=== PATIENT | female | born 1980 | race Caucasian/White ===

== ENCOUNTER 2024-07-06 08:29 | Outpatient (CLI) | payer OTHER | END 2024-07-06 09:21 | disposition home or self-care (01) | LOC: NST 08:29 | PROVIDERS: ATTEND Obstetrics & Gynecology Maternal & Fetal Medicine | DX: Z34.83 Encounter for supervision of other normal pregnancy, third trimester (principal) ==

== ENCOUNTER 2024-07-10 07:45 | Inpatient (IN) | payer OTHER ==
[~2024-07-10] VITALS: Ht 157.5 cm; Wt 2.7 kg
[2024-07-10] MEDS ORDERED: PRENA1 CHEW TA1.4 MG PO (09:48)
[2024-07-10] MEDS ORDERED: MAGNESIUM CITR100 MG PO (09:49)
[2024-07-10] MEDS ORDERED: PROBIOTIC1 EACH PO (09:49)
[2024-07-10] MEDS ORDERED: ACETAMINOPHEN500 M1 PO (09:50)
[2024-07-10] MEDS ORDERED: PEPCID AC20 MG PO (09:50)
[2024-07-10 09:54] LABS: MEAN CELL VOLUME 91.4 fL (80.00-100.00); MEAN CORPUSCULAR HEMOGLOBIN 30.5 pg (27.00-32.0); MEAN CORPUSCULAR HGB CONC 33.4 g/dl (32.0-36.0); PLATELET COUNT 207 K/uL (150-450); RED BLOOD COUNT 3.94 M/uL (4.00-6.00); RED CELL DISTRIBUTION WIDTH 13.4 % (11.5-14.5)
[2024-07-10 10:16] LABS: INR < 0.93; PARTIAL THROMBOPLASTIN TIME 25.1 SECONDS (22.0-34.0); PROTHROMBIN TIME 9.9 SECONDS (9.0-11.5)
[2024-07-10 10:37] LABS: ALBUMIN 2.5 gm/dL (3.4-5.0); BILIRUBIN TOTAL 0.18 mg/dL (0.3-1.2); CALCIUM 8.8 mg/dL (8.5-10.1); CREATININE SERUM 0.61 mg/dL (0.55-1.02); GFR 108.09; GLOBULINA 3.4 G/DL (2.4-3.5); POTASSIUM 4.06 mEq/L (3.5-5.1); TOTAL PROTEIN 5.9 gm/dL (6.4-8.2)
[2024-07-18 07:00] VITALS: BP 110/73
[2024-07-18] MEDS ORDERED: CITRIC ACID/SODIUM CITRATE 30 ML BLIST.PACK PO ONE (10:45)
[2024-07-18] MEDS ORDERED: CLINDAMYCIN PHOSPHATE 150 MG/ML (900mg) IV ONE (10:45)
[2024-07-18] MEDS ORDERED: OXYTOCIN 10 UNITS/ML VIAL IV ONE (10:45)
[2024-07-18] MEDS ORDERED: ERYTHROMYCIN BASE OPHT 1GM EACH TUBE OP ONE (10:45)
[2024-07-18] MEDS ORDERED: OXYTOCIN 1,000 ML IV ONE (11:45)
[2024-07-18] MEDS ORDERED: PROMETHAZINE HCL 25 MG/ML AMPUL IV PRN (11:45)
[2024-07-18] MEDS ORDERED: RINGERS SOLUTION,LACTATED 1,000 ML IV SCH (11:45)
[2024-07-18] MEDS ORDERED: MEPERIDINE HCL 25 MG/ML AMPUL IV PRN (11:45)
[2024-07-18] MEDS ORDERED: ACETAMINOPHEN 500 MG GEL..CAP PO SCH (12:00)
[2024-07-18] MEDS ORDERED: MORPHINE SULFATE 4 MG/ML VIAL IV ONE ×2 (12:40→14:10)
[2024-07-18 16:28] VITALS: BP 135/82
[2024-07-18] MEDS ORDERED: GABAPENTIN 300 MG CAPSULE PO SCH (17:00)
[2024-07-18] MEDS ORDERED: SIMETHICONE 125 MG CAPSULE PO SCH (17:00)
[2024-07-18 20:31] VITALS: BP 143/80
[2024-07-18] MEDS ORDERED: MEPERIDINE HCL/PF 25 MG/ML VIAL IV SCH (23:17)
[2024-07-19] VITALS: BP 131/77
[2024-07-19 06:22] LABS: HEMATOCRIT 31.9 % (36.0-45.00); HEMOGLOBIN 11.2 g/dL (12.0-15.00); MEAN CELL VOLUME 89.8 fL (80.00-100.00); MEAN CORPUSCULAR HEMOGLOBIN 31.5 pg (27.00-32.0); MEAN CORPUSCULAR HGB CONC 35.1 g/dl (32.0-36.0); PLATELET COUNT 200 K/uL (150-450); RED BLOOD COUNT 3.55 M/uL (4.00-6.00); RED CELL DISTRIBUTION WIDTH 14.1 % (11.5-14.5)
[2024-07-19] MEDS ORDERED: OxyCODONE HCL 5 MG TABLET (ROXICODONE) PO PRN (08:00)
[2024-07-19 08:33] VITALS: BP 138/69
[2024-07-19] MEDS ORDERED: DOCUSATE SODIUM 100MG CAP PO SCH (09:00)
[2024-07-19 16:35] VITALS: BP 137/80
[2024-07-20 01:44] VITALS: BP 130/78
[2024-07-20] MEDS ORDERED: FF) RHO(D) IMMUNE GLOBULIN (POM) IM ONE (08:00)
[2024-07-20 08:40] VITALS: BP 121/75
[2024-07-20 17:16] VITALS: BP 133/84
[2024-07-21 00:07] VITALS: BP 120/63
[2024-07-21 13:49] VITALS: BP 122/78
== END 2024-07-21 14:47 | disposition home or self-care (01) | DRG 785 ==
LOC: O/R 07-18 06:16 → LDR 07-18 07:00 → OB/GYN 07-18 13:27
PROVIDERS: Obstetrics & Gynecology; ADMIT Obstetrics & Gynecology Maternal & Fetal Medicine; ATTEND Obstetrics & Gynecology Maternal & Fetal Medicine
PROC: 0UB70ZZ Excision of Bilateral Fallopian Tubes, Open Approach (ICD-10-PCS; 2024-07-18)
PROC: 4A1HXCZ Monitoring of Products of Conception, Cardiac Rate, External Approach (ICD-10-PCS; 2024-07-18)
PROC: 10D00Z1 Extraction of Products of Conception, Low, Open Approach (ICD-10-PCS; principal; 2024-07-18 07:00)
DX: O34.211 Maternal care for low transverse scar from previous cesarean delivery (principal); Z30.2 Encounter for sterilization; Z3A.37 37 weeks gestation of pregnancy; Z37.0 Single live birth; Z20.822 Contact with and (suspected) exposure to COVID-19